=== PATIENT | female | born 1955 | race Caucasian/White ===

== ENCOUNTER → 2020-11-11 | Outpatient (CLI) | payer MEDICARE, MEDICAID ==
[~2020-11-11] MED LIST: ALBU0.63 NEB; APIX5TAB PO; BUDE10.2 INH; DIGO250T3 PO; DILT120T4 PO; DILT240C55 PO; FERR325T18 PO; FLUT12AE INH; FURO-92 PO; HYDR-3150 PO; NITR0.4T28 SL; SPIR25TA PO; SULF-169 PO; UMEC62.5 INH
== END | disposition home or self-care (01) ==
LOC: CFH 11:02
PROVIDERS: ATTEND Internal Medicine Cardiovascular Disease
DX: I08.8 Other rheumatic multiple valve diseases (principal); I48.91 Unspecified atrial fibrillation; I50.30 Unspecified diastolic (congestive) heart failure; J43.9 Emphysema, unspecified; I11.0 Hypertensive heart disease with heart failure; E78.5 Hyperlipidemia, unspecified; Z79.01 Long term (current) use of anticoagulants; Z87.891 Personal history of nicotine dependence
CPT/HCPCS: 78452; 93017; 93306; A9502

== ENCOUNTER 2021-04-23 00:06 | Inpatient (IN) | payer MEDICARE, MEDICAID ==
[~2021-04-23] VITALS: Ht 175.3 cm; Wt 131.4 kg
[2021-04-23] MEDS ORDERED: FUROSEMIDE 40 MG/4 ML ONE (00:28)
[2021-04-23] MEDS ORDERED: FUROSEMIDE 40 MG/4 ML IV ONE (00:30)
[2021-04-23] MEDS ORDERED: SODIUM CHLORIDE FLUSH 10ML SYR IVF ONE (00:30)
--- NOTE | 2021-04-23 00:31 | NUR ---
AMAYA BERMAN NOTIFIED ABOUT LOW BP IN THE 70'S. AWAITING ORDERS AT THIS TIME
--- NOTE | 2021-04-23 00:48 | NUR ---
AMAYA BERMAN ORDERED LEVOPHED FOR HYPOTENSION. TO HOLD OFF ON LASIX IVP UNTIL BP IMPROVES PER AMAYA BERMAN INSTRUCTION
[2021-04-23] MEDS ORDERED: PROPOFOL 100 ML IV ONE ×3 (01:05→08:43)
[2021-04-23 01:07] LABS: ALBUMIN 2.7 g/dL (3.4-5.0); ANION GAP 9 mmol/L (5-15); CALCIUM 9.7 mg/dL (8.5-10.1); CHLORIDE 111 mmol/L (98-107)
[2021-04-23 01:10] LABS: INTERNATIONAL NORMALIZED RATIO 1.13 (0.93-1.1)
[2021-04-23 01:10] LABS: ALANINE AMINOTRANSFERASE 15 U/L (12-78); ALKALINE PHOSPHATASE 119 U/L (45-117); CREATININE 3.48 mg/dL (0.55-1.02); T4 (THYROXINE) 7.1 mcg/dL (4.8-13.9); TOTAL PROTEIN 6.3 g/dL (6.4-8.2); TROPONIN I < 0.015 ng/mL (0.000-0.045)
[2021-04-23 01:20] LABS: BASOPHILS % (AUTO) 0 % (0-1); EOSINOPHILS % (AUTO) 0 % (1-7); LYMPHOCYTES % (AUTO) 3 % (22-44); MEAN CORPUSCULAR HEMOGLOBIN 20.1 pg (27.0-34.8); MEAN PLATELET VOLUME 9.6 fL (7.4-10.4); MONOCYTES % (AUTO) 2 % (2-9); NEUTROPHILS % (AUTO) 95 % (42-75); PLATELET COUNT 292 x10^3/uL (130-400); RED BLOOD COUNT 5.88 x10^6/uL (3.82-5.3); RED CELL DISTRIBUTION WIDTH 20.8 % (9.6-15.2)
--- NOTE | 2021-04-23 01:20 | NUR ---
DR. CONDE NOTIFIED OF ALL CRITICAL LAB RESULTS
[2021-04-23] MEDS: NOREPINEPHRINE 8 MG in SODIUM CHLORIDE 0.9% 242 ML IV PRN ×7 (01:21→12:54)
--- NOTE | 2021-04-23 01:30 | NUR ---
PATIENT INTUBATED AT THIS TIME PER DR. CONDE
[2021-04-23] MEDS: PROPOFOL 100 ML IV PRN ×5 (01:45→21:13)
[2021-04-23 01:46] LABS: BILIRUBIN,TOTAL 1.3 mg/dL (0.2-1.0)
[2021-04-23 01:59] LABS: MEAN CORPUSCULAR HGB CONC 28.7 g/dL (32.4-35.8)
[2021-04-23] MEDS ORDERED: ROCURONIUM 10 MG/ML,10ML IVPush ONE (02:00)
[2021-04-23] MEDS ORDERED: AZITHROMYCIN 500 MG in SODIUM CHLORIDE 0.9% 250 ML IV ONE (02:00)
[2021-04-23] MEDS ORDERED: CEFTRIAXONE 1,000 MG in DEXTROSE 5% 50 ML IVPB ONE (02:00)
[2021-04-23] MEDS ORDERED: INSULIN REGULAR 100 UNITS/ML, 3ML VIAL IVPush ONE (02:00)
[2021-04-23] MEDS ORDERED: ETOMIDATE 40 MG/20 ML IVPush ONE (02:00)
[2021-04-23] MEDS ORDERED: DEXTROSE 50%, 50ML SYRINGE IVPush ONE (02:00)
[2021-04-23] MEDS ORDERED: CALCIUM CHLORIDE 10%, 10ML SYR IVPush ONE (02:00)
[2021-04-23] MEDS ORDERED: SODIUM CHLORIDE 0.9% 1,000 ML IV ONE (02:00)
[2021-04-23 02:02] LABS: ANISOCYTOSIS 2+; MICROCYTOSIS 2+; OVALOCYTES 1+
[2021-04-23 02:03] LABS: ECHINOCYTES 1+; HYPOCHROMIA 2+
[2021-04-23 02:04] LABS: <PLATELET ESTIMATE> ADEQUATE; <PLT MORPHOLOGY> NORMAL PLT MORPH
[2021-04-23] MEDS ORDERED: CALCIUM CHLORIDE 10%, 10ML SYR ONE (02:07)
[2021-04-23] MEDS ORDERED: DEXTROSE 50%, 50ML SYRINGE ONE (02:07)
[2021-04-23] MEDS ORDERED: INSULIN LISPRO SINGLE DOSE, ER SQ-INSULIN ONE (02:08)
--- NOTE | 2021-04-23 02:10 | NUR ---
AMAYA BERMAN INFORMED ABOUT LOW DIASTOLIC PRESSURE IN THE 20'S. AMAYA BERMAN SAID TO TITRATE UP ON THE LEVOPHED TO REACH MAP OF GREATER THAN 65
--- NOTE | 2021-04-23 02:19 | NUR ---
PATIENT HEART RHYTHM CHANGED TO VTAC WITH A PULSE. AMAYA BERMAN AT THE BEDSIDE AND SAID TO DO ANOTHER EKG
[2021-04-23] MEDS ORDERED: INSULIN SINGLE DOSE, ER ONE (02:21)
--- NOTE | 2021-04-23 03:00 | NUR ---
ALDRICH INSERTION SUPERVISED BY ANNA AND DEE ANDREW
--- NOTE | 2021-04-23 03:44 | NUR ---
Dr. Singh notified of critical digoxin and arterial blood has results
[2021-04-23] MEDS ORDERED: MIDAZOLAM 1 MG/ML, 2ML ONE (04:06)
--- NOTE | 2021-04-23 04:07 | NUR ---
BREAK RN: PT BECOMING AGGITATED AND MOVING HER HEAD AROUND AND BITTING DOWN ON INTUBATION TUBING, NOTIFIED, 4MG OF VERSED ORDERED AND ADMINISTERED BY THIS RN
[2021-04-23] MEDS ORDERED: ONDANSETRON 2MG/ML, 2ML IVPush PRN (04:30)
[2021-04-23] MEDS ORDERED: PHARMACY MAY ADJ FOR RENAL FX MC PRN (04:30)
[2021-04-23] MEDS ORDERED: ENOXAPARIN 60 MG/0.6 ML SQ SCH ×3 (04:30→05:30)
[2021-04-23] MEDS ORDERED: VANCOMYCIN PER PHARMACY MC PRN (04:30)
[2021-04-23] MEDS ORDERED: MIDAZOLAM 1 MG/ML, 5ML IVPush ONE (04:30)
[2021-04-23] MEDS ORDERED: ROCURONIUM 10MG/ML,5ML ONE (04:35)
[2021-04-23] MEDS ORDERED: ETOMIDATE 20 MG/10 ML ONE (04:35)
[2021-04-23] MEDS ORDERED: MIDAZOLAM 1 MG/ML, 5ML ONE (04:35)
[2021-04-23 04:58] LABS: HCT (SEDRATE) 43.2 % (34.6-47.8)
[2021-04-23 05:09] LABS: BASOPHILS % (AUTO) 1 % (0-1); EOSINOPHILS % (AUTO) 0 % (1-7); LYMPHOCYTES % (AUTO) 2 % (22-44); MEAN CORPUSCULAR HEMOGLOBIN 20.3 pg (27.0-34.8); MEAN PLATELET VOLUME 8.6 fL (7.4-10.4); MONOCYTES % (AUTO) 2 % (2-9); NEUTROPHILS % (AUTO) 95 % (42-75); PLATELET COUNT 414 x10^3/uL (130-400); RED BLOOD COUNT 6.14 x10^6/uL (3.82-5.3); RED CELL DISTRIBUTION WIDTH 20.7 % (9.6-15.2)
[2021-04-23] MEDS ORDERED: ENOXAPARIN 60 MG/0.6 ML ONE (05:17)
[2021-04-23] MEDS ORDERED: ENOXAPARIN 80 MG/0.8 ML ONE (05:17)
--- NOTE | 2021-04-23 05:20 | NUR ---
Al cruz in ED - 04/23/21 at 0715 by SALOMÓN AMAYA BERMAN MADE AWARE THAT PATIENT HAS LESS THAN 30ML/HR OF URINE BEING PRODUCED. NO NEW ORDERS AT THIS TIME
--- NOTE | 2021-04-23 05:20 | NUR ---
AMAYA BERMAN MADE AWARE THAT PATIENT HAS LESS THAN 30ML/HR OF URINE BEING PRODUCED. NO NEW ORDERS AT THIS TIME
[2021-04-23 05:25] LABS: TROPONIN I < 0.015 ng/mL (0.000-0.045)
[2021-04-23] MEDS ORDERED: ENOXAPARIN 80 MG/0.8 ML SQ SCH ×2 (05:30)
--- NOTE | 2021-04-23 05:44 | NUR ---
AMAYA BERMAN NOTIFIED ABOUT CRITICAL LOW ARTERIAL BLOOD HAS PH RESULTS. NO NEW ORDERS AT THIS TIME
[2021-04-23 05:59] LABS: MEAN CORPUSCULAR HGB CONC 29.3 g/dL (32.4-35.8)
[2021-04-23 06:00] LABS: ANISOCYTOSIS 2+; MICROCYTOSIS 2+
[2021-04-23 06:01] LABS: <PLATELET ESTIMATE> INCREASED; ECHINOCYTES 1+; HYPOCHROMIA 1+; OVALOCYTES 1+; POLYCHROMASIA 1+
[2021-04-23 06:02] LABS: <PLT MORPHOLOGY> NORMAL PLT MORPH
--- NOTE | 2021-04-23 06:50 | NUR ---
PATIENT MOVED FROM ED [facility] TO [facility] BED
--- NOTE | 2021-04-23 07:02 | NUR ---
RECEIVED REPORT FROM TOPHER GARRETT. PT RESTING CALMLY ON HOSPITAL BED WITH HOB ELEVATED, ETT 24 @ LIP, OGT TO LCWS WITH OUTPUT IN TUBE ONLY, FC DRAINING TO GRAVITY WITH 10ML UOP IN BAG. Addendum: 04/23/21 at 0830 by SALOMÓN RECEIVED REPORT FROM TOPHER GARRETT. PT POSITIONED FOR COMFORT & RESTING CALMLY ON HOSPITAL BED WITH HOB ELEVATED, ETT 24 @ LIP, OGT TO LCWS WITH OUTPUT IN TUBE ONLY, FC DRAINING TO GRAVITY WITH 10ML UOP IN BAG.
--- NOTE | 2021-04-23 08:03 | NUR ---
PT CONTINUES TO REST CALMLY ON HOSPITAL BED, ALL LINES PATENT, FAMILY CALLED & UPDATED ON PT STATUS & VISITING POLICY, US AT BS.
--- NOTE | 2021-04-23 08:03 | NUR ---
DAUGHTER: CATHIE BOLANOS [phone] SON: MILTON LUIS MIGUEL [phone]
--- NOTE | 2021-04-23 08:32 | NUR ---
PT REPOSITIONED FOR COMFORT & RESTING CALMLY WITH HOB ELEVATED. 30ML URINE COLLECTED/EMPTIED FROM ALDRICH FOR UA SAMPLE- SENT TO LAB.
[2021-04-23 08:34] LABS: MICROSCOPIC INDICATED
[2021-04-23 08:38] LABS: CHLORIDE,URINE RANDOM 14 mmol/L; POTASSIUM,URINE RANDOM 47 mmol/L; SODIUM,URINE RANDOM 21 mmol/L
--- NOTE | 2021-04-23 08:52 | NUR ---
REPORT GIVEN TO JOSHUA GARRETT
[2021-04-23] MEDS ORDERED: PHARMACOKINETIC CONSULTATION MC ONE (09:00)
[2021-04-23] MEDS ORDERED: HYDROXYCHLOROQUINE 200 MG TABLET PO SCH (09:00)
[2021-04-23] MEDS ORDERED: VANCOMYCIN 2,300 MG in SODIUM CHLORIDE 0.9% 500 ML IV ONE (09:00)
[2021-04-23] MEDS ORDERED: PHARMACOKINETIC MONITORING MC PRN (09:00)
[2021-04-23] MEDS ORDERED: CHOLECALCIFEROL 5,000u TAB PO SCH (09:00)
--- NOTE | 2021-04-23 09:04 | NUR ---
SBAR RPT REC'D FROM TAMI STERN AND ASSUMED PT CARE. CRITICAL CARE GTTS AND INVASSIVE LINES VERIFIED.
[2021-04-23] MEDS ORDERED: DEXAMETHASONE 4 MG/ML, 1ML ONE (09:38)
[2021-04-23] MEDS: DEXAMETHASONE 4 MG/ML, 1ML IVPush SCH (09:42)
[2021-04-23] MEDS ORDERED: ASCORBIC ACID 500 MG TABLET ONE (09:49)
[2021-04-23] MEDS ORDERED: ZINC SULFATE 220 MG CAPSULE ONE (09:49)
[2021-04-23] MEDS ORDERED: THIAMINE 100MG TABLET ONE (09:49)
[2021-04-23] MEDS ORDERED: CHOLECALCIFEROL 5,000u TAB ONE (09:49)
[2021-04-23] MEDS: THIAMINE 100MG TABLET PO SCH (10:00)
[2021-04-23] MEDS: ASCORBIC ACID 500 MG TABLET PO SCH ×2 (10:00→21:06)
[2021-04-23] MEDS: ZINC SULFATE 220 MG CAPSULE PO SCH (10:00)
--- NOTE | 2021-04-23 10:00 | NUR ---
OGT CHECKED WITH AIR BOLUS PRIOR TO PUMP AND STILL OPERATOR. WHEN MEDS GIVEN AND PRIOR TO CLAMPING TUBE I HEAR A FAINT GIRGLING SOUND FROM MOUTH. I CHECKED PRIOR RADIOLOGY STUDIES AND NO MENTION OF OGT TUBE NOTED. DISCUSSED WITH STEVEN CHERY FOR CHEST XRAY AND KUB ORDERED.
[2021-04-23 10:22] LABS: D-DIMER 2.25 ug/mlFEU (0.00-0.52)
[2021-04-23 10:23] LABS: TROPONIN I 0.023 ng/mL (0.000-0.045)
--- NOTE | 2021-04-23 11:15 | NUR ---
ABD XRAY COMPLETED AND REVIEWED BY DR DUPONT, CONFIRMED OGT IN THE STOMACH. OGT TO [place].
--- NOTE | 2021-04-23 11:27 | NUR ---
DR PACK AT BEDSIDE.
[2021-04-23 11:57] VITALS: BP 104/30
[2021-04-23] MEDS ORDERED: NOREPINEPHRINE 1 MG/ML, 4ML ONE ×2 (12:49→15:03)
[2021-04-23] MEDS ORDERED: FENTANYL PF 100 MCG/2ML IVPush PRN (13:00)
[2021-04-23] MEDS ORDERED: PHARMACY MAY ADJ FOR RENAL FX MC SCH (13:00)
[2021-04-23] MEDS ORDERED: LIDOCAINE-MPF 1%, 2ML ENDO PRN (13:00)
[2021-04-23] MEDS: ERGOCALCIFEROL 50,000 UNIT CAPSULE PO SCH (14:11)
[2021-04-23] MEDS: HEPARIN 5,000 UNITS/ML, 1ML SQ SCH ×2 (14:12→21:06)
[2021-04-23] MEDS: NOREPINEPHRINE 32 MG in SODIUM CHLORIDE 0.9% 218 ML IV PRN (16:30)
[2021-04-23] MEDS: VASOPRESSIN 20 UNIT in SODIUM CHLORIDE 0.9% 99 ML IV PRN (21:07)
[2021-04-24] MEDS: PROPOFOL 100 ML IV PRN ×6 (00:05→20:00)
[2021-04-24] MEDS: CEFTRIAXONE 2 GM in DEXTROSE 5% 50 ML IVPB SCH (01:19)
[2021-04-24] MEDS: AZITHROMYCIN 500 MG in SODIUM CHLORIDE 0.9% 250 ML IV SCH (02:01)
[2021-04-24] MEDS: NOREPINEPHRINE 32 MG in SODIUM CHLORIDE 0.9% 218 ML IV PRN ×2 (02:01→11:45)
[2021-04-24] MEDS: VASOPRESSIN 20 UNIT in SODIUM CHLORIDE 0.9% 99 ML IV PRN ×2 (02:34→11:45)
[2021-04-24] MEDS ORDERED: VANCOMYCIN PER PHARMACY MC PRN (03:00)
[2021-04-24 04:48] LABS: HCT (SEDRATE) 41.2 % (34.6-47.8); MEAN CORPUSCULAR HEMOGLOBIN 19.9 pg (27.0-34.8); MEAN PLATELET VOLUME 8.5 fL (7.4-10.4); PLATELET COUNT 437 x10^3/uL (130-400); RED BLOOD COUNT 6.06 x10^6/uL (3.82-5.3); RED CELL DISTRIBUTION WIDTH 21.4 % (9.6-15.2)
[2021-04-24 04:57] LABS: ALBUMIN 2.5 g/dL (3.4-5.0); ANION GAP 8 mmol/L (5-15); CALCIUM 8.6 mg/dL (8.5-10.1); CHLORIDE 110 mmol/L (98-107)
[2021-04-24 05:06] LABS: ALANINE AMINOTRANSFERASE 13 U/L (12-78); ALKALINE PHOSPHATASE 116 U/L (45-117); BILIRUBIN,TOTAL 0.9 mg/dL (0.2-1.0); CREATININE 3.09 mg/dL (0.55-1.02); TOTAL PROTEIN 6.4 g/dL (6.4-8.2)
[2021-04-24 05:22] LABS: MEAN CORPUSCULAR HGB CONC 29.2 g/dL (32.4-35.8)
[2021-04-24] MEDS ORDERED: CALCIUM CHLORIDE 10%, 10ML SYR IVPush ONE (05:30)
[2021-04-24] MEDS ORDERED: INSULIN REGULAR 100 UNITS/ML, 3ML VIAL IVPush ONE (05:30)
[2021-04-24] MEDS ORDERED: SODIUM BICARB 8.4%, 50ML SYRINGE IVPush ONE ×2 (05:30→16:00)
[2021-04-24] MEDS ORDERED: DEXTROSE 50%, 50ML SYRINGE IVPush ONE (05:30)
[2021-04-24 05:41] LABS: BAND#(MANUAL) 0.21 x10^3/uL; BANDS%(MANUAL) 1 % (0-7); LYMPH#(MANUAL) 0.63 x10^3/uL (1-3.4); LYMPHS% (MANUAL) 3 % (22-44); MONOS% (MANUAL) 11 % (2-9); SEG#(MANUAL) 17.77 x10^3/uL (1.8-6.8); SEGS% (MANUAL) 85 % (42-75)
[2021-04-24 05:42] LABS: <PLATELET ESTIMATE> INCREASED; <PLT MORPHOLOGY> NORMAL PLT MORPH; ANISOCYTOSIS 2+; HYPOCHROMIA 1+; MICROCYTOSIS 2+; OVALOCYTES 1+; POLYCHROMASIA 1+
[2021-04-24] MEDS: HEPARIN 5,000 UNITS/ML, 1ML SQ SCH ×3 (06:00→21:20)
[2021-04-24] MEDS: FERROUS SULFATE 325 MG TABLET PO SCH ×2 (08:11→17:57)
[2021-04-24] MEDS: SODIUM ZIRCONIUM CYCLOSILICATE 10 GM PO SCH (09:02)
[2021-04-24] MEDS: PANTOPRAZOLE 40 MG IV IV SCH (09:02)
[2021-04-24] MEDS: DEXAMETHASONE 4 MG/ML, 1ML IVPush SCH (09:02)
[2021-04-24] MEDS: SODIUM BICARBONATE 650 MG TABLET PO SCH ×2 (09:03→21:00)
[2021-04-24] MEDS: ZINC SULFATE 220 MG CAPSULE PO SCH (09:03)
[2021-04-24] MEDS: THIAMINE 100MG TABLET PO SCH (09:04)
[2021-04-24] MEDS: ASCORBIC ACID 500 MG TABLET PO SCH ×2 (09:04→21:20)
[2021-04-24] MEDS ORDERED: REMDESIVIR 200 MG in SODIUM CHLORIDE 0.9% 250 ML IVPB ONE (10:00)
[2021-04-24] MEDS ORDERED: DOPAMINE/D5W PMX 250 ML ONE (14:25)
[2021-04-24] MEDS ORDERED: ATROPINE SYRINGE 0.1 MG/ML, 10ML IVPush PRN (14:30)
[2021-04-24] MEDS: DOPAMINE/D5W PMX 250 ML IV PRN ×2 (14:35→20:00)
[2021-04-24 14:45] LABS: ANION GAP 7 mmol/L (5-15); CALCIUM 8.5 mg/dL (8.5-10.1); CHLORIDE 113 mmol/L (98-107); CREATININE 2.87 mg/dL (0.55-1.02)
[2021-04-24] MEDS ORDERED: SODIUM BICARB 8.4%, 50ML SYRINGE ONE (15:37)
[2021-04-24] MEDS: SODIUM BICARBONATE 8.4% 150 MEQ in DEXTROSE 5% 1,000 ML IV SCH (16:33)
[2021-04-24] MEDS ORDERED: ATROPINE SYRINGE 0.1 MG/ML, 10ML ONE (19:40)
[2021-04-24] MEDS: MIDAZOLAM HCL 50 MG in SODIUM CHLORIDE 0.9% 40 ML IV PRN (21:00)
[2021-04-25] MEDS: SODIUM BICARBONATE 8.4% 150 MEQ in DEXTROSE 5% 1,000 ML IV SCH (01:48)
[2021-04-25] MEDS: SODIUM ZIRCONIUM CYCLOSILICATE 10 GM PO SCH (01:48)
[2021-04-25] MEDS: DOPAMINE/D5W PMX 250 ML IV PRN (01:49)
[2021-04-25] MEDS: PROPOFOL 100 ML IV PRN ×2 (01:50→08:57)
[2021-04-25] MEDS: CEFTRIAXONE 2 GM in DEXTROSE 5% 50 ML IVPB SCH (02:45)
[2021-04-25] MEDS: AZITHROMYCIN 500 MG in SODIUM CHLORIDE 0.9% 250 ML IV SCH (03:00)
[2021-04-25 03:25] LABS: MEAN CORPUSCULAR HEMOGLOBIN 19.9 pg (27.0-34.8); MEAN PLATELET VOLUME 8.6 fL (7.4-10.4); PLATELET COUNT 260 x10^3/uL (130-400); RED BLOOD COUNT 5.26 x10^6/uL (3.82-5.3); RED CELL DISTRIBUTION WIDTH 20.9 % (9.6-15.2)
[2021-04-25 03:29] LABS: MEAN CORPUSCULAR HGB CONC 29.5 g/dL (32.4-35.8)
[2021-04-25 03:30] LABS: HCT (SEDRATE) 35.5 % (34.6-47.8)
[2021-04-25 03:32] LABS: ALANINE AMINOTRANSFERASE 11 U/L (12-78); ALBUMIN 2.1 g/dL (3.4-5.0); ANION GAP 7 mmol/L (5-15); CALCIUM 8.1 mg/dL (8.5-10.1); CHLORIDE 110 mmol/L (98-107); CREATININE 2.43 mg/dL (0.55-1.02)
[2021-04-25 03:39] LABS: ALKALINE PHOSPHATASE 90 U/L (45-117); BILIRUBIN,TOTAL 0.6 mg/dL (0.2-1.0); TOTAL PROTEIN 5.4 g/dL (6.4-8.2); VANCOMYCIN,RANDOM 12.6 mcg/mL
[2021-04-25 04:09] LABS: D-DIMER 1.74 ug/mlFEU (0.00-0.52)
[2021-04-25 04:24] LABS: LYMPH#(MANUAL) 0.71 x10^3/uL (1-3.4); LYMPHS% (MANUAL) 8 % (22-44); MONOS#(MANUAL) 0.45 x10^3/uL (0.3-2.7); MONOS% (MANUAL) 5 % (2-9); REACTIVE LYMPHS # (MANUAL) 0.09 x10^3/uL (0-0); REACTIVE LYMPHS % (MANUAL) 1 % (0-0); SEG#(MANUAL) 7.65 x10^3/uL (1.8-6.8); SEGS% (MANUAL) 86 % (42-75)
[2021-04-25 04:25] LABS: ANISOCYTOSIS 2+; HYPOCHROMIA 1+; MICROCYTOSIS 2+; OVALOCYTES 1+; POLYCHROMASIA 1+
[2021-04-25 04:26] LABS: <PLATELET ESTIMATE> ADEQUATE; <PLT MORPHOLOGY> NORMAL PLT MORPH
[2021-04-25] MEDS: HEPARIN 5,000 UNITS/ML, 1ML SQ SCH (05:30)
[2021-04-25] MEDS ORDERED: FUROSEMIDE 40 MG/4 ML IV ONE (08:30)
[2021-04-25] MEDS: ZINC SULFATE 220 MG CAPSULE PO SCH (08:56)
[2021-04-25] MEDS: FERROUS SULFATE 325 MG TABLET PO SCH ×2 (08:56→17:03)
[2021-04-25] MEDS: ASCORBIC ACID 500 MG TABLET PO SCH ×2 (08:56→20:32)
[2021-04-25] MEDS: THIAMINE 100MG TABLET PO SCH (08:56)
[2021-04-25] MEDS: PANTOPRAZOLE 40 MG IV IV SCH (08:57)
[2021-04-25] MEDS: DEXAMETHASONE 4 MG/ML, 1ML IVPush SCH (08:57)
[2021-04-25] MEDS: SODIUM BICARBONATE 650 MG TABLET PO SCH ×2 (09:00→20:32)
--- NOTE | 2021-04-25 09:42 | NUR ---
TF per RD recs: vital HP w/ end goal rate of 60 mL/hr (ON propofol); 70 mL/hr (OFF propofol) w/ addition of 2-packets of beneprotein QD (protein modular), to provide additional 14g protein to meet increased protein needs. Addendum: 04/25/21 at [address] Amended: Links added.
[2021-04-25] MEDS: MIDAZOLAM HCL 50 MG in SODIUM CHLORIDE 0.9% 40 ML IV PRN ×2 (09:57→23:00)
[2021-04-25] MEDS ORDERED: VANCOMYCIN 2,400 MG in SODIUM CHLORIDE 0.9% 500 ML IV ONE (10:00)
[2021-04-25] MEDS: REMDESIVIR 100 MG in SODIUM CHLORIDE 0.9% 250 ML IVPB SCH (11:29)
[2021-04-25] MEDS: APIXABAN 5 MG TABLET PO SCH (20:32)
[2021-04-26] MEDS: CEFTRIAXONE 2 GM in DEXTROSE 5% 50 ML IVPB SCH (02:00)
[2021-04-26] MEDS: AZITHROMYCIN 500 MG in SODIUM CHLORIDE 0.9% 250 ML IV SCH (03:00)
[2021-04-26 04:18] LABS: BASOPHILS % (AUTO) 0 % (0-1); EOSINOPHILS % (AUTO) 0 % (1-7); LYMPHOCYTES % (AUTO) 6 % (22-44); MEAN CORPUSCULAR HEMOGLOBIN 19.9 pg (27.0-34.8); MEAN CORPUSCULAR HGB CONC 29.8 g/dL (32.4-35.8); MEAN PLATELET VOLUME 8.6 fL (7.4-10.4); MONOCYTES % (AUTO) 8 % (2-9); NEUTROPHILS % (AUTO) 86 % (42-75); PLATELET COUNT 329 x10^3/uL (130-400); RED BLOOD COUNT 5.48 x10^6/uL (3.82-5.3)
[2021-04-26 04:24] LABS: ALANINE AMINOTRANSFERASE 12 U/L (12-78); ALBUMIN 2.4 g/dL (3.4-5.0); ANION GAP 5 mmol/L (5-15); CALCIUM 8.3 mg/dL (8.5-10.1); CHLORIDE 113 mmol/L (98-107); CREATININE 1.84 mg/dL (0.55-1.02)
[2021-04-26 04:26] LABS: ALKALINE PHOSPHATASE 93 U/L (45-117); BILIRUBIN,TOTAL 0.6 mg/dL (0.2-1.0); TRIGLYCERIDES 89 mg/dL (50-200)
[2021-04-26] MEDS ORDERED: FUROSEMIDE 20 MG/2 ML IV ONE (06:30)
[2021-04-26] MEDS: ZINC SULFATE 220 MG CAPSULE PO SCH (08:07)
[2021-04-26] MEDS: FERROUS SULFATE 325 MG TABLET PO SCH ×2 (08:07→17:51)
[2021-04-26] MEDS: APIXABAN 5 MG TABLET PO SCH ×2 (08:08→20:16)
[2021-04-26] MEDS: SODIUM BICARBONATE 650 MG TABLET PO SCH ×2 (08:08→20:16)
[2021-04-26] MEDS: THIAMINE 100MG TABLET PO SCH (08:08)
[2021-04-26] MEDS: ASCORBIC ACID 500 MG TABLET PO SCH ×2 (08:08→20:16)
[2021-04-26] MEDS: DEXAMETHASONE 4 MG/ML, 1ML IVPush SCH (08:08)
[2021-04-26] MEDS: PANTOPRAZOLE 40 MG IV IV SCH (08:08)
[2021-04-26] MEDS: REMDESIVIR 100 MG in SODIUM CHLORIDE 0.9% 250 ML IVPB SCH (11:43)
[2021-04-26] MEDS: MIDAZOLAM HCL 50 MG in SODIUM CHLORIDE 0.9% 40 ML IV PRN (14:16)
[2021-04-26] MEDS: MIDAZOLAM HCL 100 MG in SODIUM CHLORIDE 0.9% 80 ML IV PRN (23:45)
[2021-04-27] MEDS: CEFTRIAXONE 2 GM in DEXTROSE 5% 50 ML IVPB SCH (02:00)
[2021-04-27] MEDS: PROPOFOL 100 ML IV PRN ×3 (03:00→16:27)
[2021-04-27] MEDS: AZITHROMYCIN 500 MG in SODIUM CHLORIDE 0.9% 250 ML IV SCH (03:41)
[2021-04-27 04:29] LABS: BASOPHILS % (AUTO) 0 % (0-1); EOSINOPHILS % (AUTO) 0 % (1-7); LYMPHOCYTES % (AUTO) 7 % (22-44); MEAN CORPUSCULAR HEMOGLOBIN 19.6 pg (27.0-34.8); MEAN PLATELET VOLUME 8.6 fL (7.4-10.4); MONOCYTES % (AUTO) 13 % (2-9); NEUTROPHILS % (AUTO) 80 % (42-75); PLATELET COUNT 296 x10^3/uL (130-400); RED CELL DISTRIBUTION WIDTH 20.7 % (9.6-15.2)
[2021-04-27 04:36] LABS: ALANINE AMINOTRANSFERASE 14 U/L (12-78); ALBUMIN 2.6 g/dL (3.4-5.0); CALCIUM 8.5 mg/dL (8.5-10.1); CREATININE 1.38 mg/dL (0.55-1.02)
[2021-04-27 04:38] LABS: ALKALINE PHOSPHATASE 82 U/L (45-117); BILIRUBIN,TOTAL 0.6 mg/dL (0.2-1.0); TOTAL PROTEIN 5.8 g/dL (6.4-8.2)
[2021-04-27 04:45] LABS: ANION GAP 3 mmol/L (5-15); CHLORIDE 114 mmol/L (98-107)
[2021-04-27 04:49] LABS: MEAN CORPUSCULAR HGB CONC 29.3 g/dL (32.4-35.8)
[2021-04-27 05:10] LABS: <PLATELET ESTIMATE> ADEQUATE; <PLT MORPHOLOGY> NORMAL PLT MORPH; ANISOCYTOSIS 2+; HYPOCHROMIA 1+; MICROCYTOSIS 2+; OVALOCYTES 1+; POLYCHROMASIA 1+; TARGET CELLS 1+; TEAR DROPS 1+
[2021-04-27] MEDS ORDERED: FUROSEMIDE 40 MG/4 ML IV ONE (09:00)
[2021-04-27] MEDS: THIAMINE 100MG TABLET PO SCH (09:17)
[2021-04-27] MEDS: FERROUS SULFATE 325 MG TABLET PO SCH ×2 (09:17→16:26)
[2021-04-27] MEDS: DEXAMETHASONE 4 MG/ML, 1ML IVPush SCH (09:17)
[2021-04-27] MEDS: ZINC SULFATE 220 MG CAPSULE PO SCH (09:17)
[2021-04-27] MEDS: APIXABAN 5 MG TABLET PO SCH ×2 (09:17→20:25)
[2021-04-27] MEDS: ASCORBIC ACID 500 MG TABLET PO SCH ×2 (09:18→20:25)
[2021-04-27] MEDS: PANTOPRAZOLE 40 MG IV IV SCH (09:18)
[2021-04-27] MEDS: REMDESIVIR 100 MG in SODIUM CHLORIDE 0.9% 250 ML IVPB SCH (12:18)
[2021-04-27] MEDS: MIDAZOLAM HCL 100 MG in SODIUM CHLORIDE 0.9% 80 ML IV PRN (18:38)
[2021-04-28] MEDS: PROPOFOL 100 ML IV PRN ×5 (00:02→20:13)
[2021-04-28] MEDS: CEFTRIAXONE 2 GM in DEXTROSE 5% 50 ML IVPB SCH (02:19)
[2021-04-28] MEDS: AZITHROMYCIN 500 MG in SODIUM CHLORIDE 0.9% 250 ML IV SCH (03:13)
[2021-04-28 04:16] LABS: BASOPHILS % (AUTO) 0 % (0-1); EOSINOPHILS % (AUTO) 0 % (1-7); LYMPHOCYTES % (AUTO) 7 % (22-44); MEAN CORPUSCULAR HEMOGLOBIN 19.9 pg (27.0-34.8); MEAN PLATELET VOLUME 8.6 fL (7.4-10.4); MONOCYTES % (AUTO) 9 % (2-9); NEUTROPHILS % (AUTO) 84 % (42-75); PLATELET COUNT 284 x10^3/uL (130-400); RED BLOOD COUNT 5.74 x10^6/uL (3.82-5.3); RED CELL DISTRIBUTION WIDTH 21.5 % (9.6-15.2)
[2021-04-28 04:26] LABS: ALBUMIN 2.4 g/dL (3.4-5.0); ANION GAP 4 mmol/L (5-15); CALCIUM 8.9 mg/dL (8.5-10.1); CHLORIDE 115 mmol/L (98-107)
[2021-04-28 04:31] LABS: ALANINE AMINOTRANSFERASE 14 U/L (12-78); ALKALINE PHOSPHATASE 83 U/L (45-117); BILIRUBIN,TOTAL 0.6 mg/dL (0.2-1.0); TOTAL PROTEIN 5.7 g/dL (6.4-8.2)
[2021-04-28 05:47] LABS: ANISOCYTOSIS 2+; MEAN CORPUSCULAR HGB CONC 29.4 g/dL (32.4-35.8); MICROCYTOSIS 2+
[2021-04-28 05:48] LABS: <PLATELET ESTIMATE> ADEQUATE; <PLT MORPHOLOGY> NORMAL PLT MORPH; HYPOCHROMIA 1+; OVALOCYTES 1+; POLYCHROMASIA 1+; TARGET CELLS 1+; TEAR DROPS 1+
[2021-04-28] MEDS: ZINC SULFATE 220 MG CAPSULE PO SCH (08:28)
[2021-04-28] MEDS: PANTOPRAZOLE 40 MG IV IV SCH (08:28)
[2021-04-28] MEDS: FERROUS SULFATE 325 MG TABLET PO SCH ×2 (08:28→18:09)
[2021-04-28] MEDS: APIXABAN 5 MG TABLET PO SCH ×2 (08:28→20:58)
[2021-04-28] MEDS: DEXAMETHASONE 4 MG/ML, 1ML IVPush SCH (08:29)
[2021-04-28] MEDS: ASCORBIC ACID 500 MG TABLET PO SCH ×2 (08:29→20:58)
[2021-04-28] MEDS: FUROSEMIDE 40 MG/4 ML IV SCH ×2 (09:25→20:58)
[2021-04-28] MEDS: MIDAZOLAM HCL 100 MG in SODIUM CHLORIDE 0.9% 80 ML IV PRN (09:25)
[2021-04-28] MEDS: REMDESIVIR 100 MG in SODIUM CHLORIDE 0.9% 250 ML IVPB SCH (10:41)
[2021-04-28] MEDS: THIAMINE 100MG TABLET PO SCH (10:41)
[2021-04-29] MEDS: PROPOFOL 100 ML IV PRN ×5 (00:23→17:26)
[2021-04-29] MEDS: CEFTRIAXONE 2 GM in DEXTROSE 5% 50 ML IVPB SCH (03:14)
[2021-04-29] MEDS: AZITHROMYCIN 500 MG in SODIUM CHLORIDE 0.9% 250 ML IV SCH (03:47)
[2021-04-29 04:10] LABS: BASOPHILS % (AUTO) 0 % (0-1); EOSINOPHILS % (AUTO) 0 % (1-7); LYMPHOCYTES % (AUTO) 9 % (22-44); MEAN CORPUSCULAR HEMOGLOBIN 19.9 pg (27.0-34.8); MEAN PLATELET VOLUME 8.4 fL (7.4-10.4); MONOCYTES % (AUTO) 8 % (2-9); NEUTROPHILS % (AUTO) 83 % (42-75); PLATELET COUNT 214 x10^3/uL (130-400); RED BLOOD COUNT 5.66 x10^6/uL (3.82-5.3); RED CELL DISTRIBUTION WIDTH 21.2 % (9.6-15.2)
[2021-04-29 04:12] LABS: MEAN CORPUSCULAR HGB CONC 29.5 g/dL (32.4-35.8)
[2021-04-29 04:49] LABS: ANISOCYTOSIS 2+; MICROCYTOSIS 2+
[2021-04-29 04:50] LABS: HYPOCHROMIA 1+; OVALOCYTES 1+; POLYCHROMASIA 1+
[2021-04-29 04:51] LABS: <PLATELET ESTIMATE> ADEQUATE; <PLT MORPHOLOGY> NORMAL PLT MORPH; TARGET CELLS 1+; TEAR DROPS 1+
[2021-04-29 06:16] LABS: CHLORIDE 114 mmol/L (98-107)
[2021-04-29 06:25] LABS: ALANINE AMINOTRANSFERASE 13 U/L (12-78); ALBUMIN 2.3 g/dL (3.4-5.0); ALKALINE PHOSPHATASE 78 U/L (45-117); ANION GAP 6 mmol/L (5-15); BILIRUBIN,TOTAL 0.6 mg/dL (0.2-1.0); CALCIUM 8.8 mg/dL (8.5-10.1); CREATININE 0.98 mg/dL (0.55-1.02); TOTAL PROTEIN 5.4 g/dL (6.4-8.2)
[2021-04-29] MEDS: PANTOPRAZOLE 40 MG IV IV SCH ×2 (11:12→21:11)
[2021-04-29] MEDS: DEXAMETHASONE 4 MG/ML, 1ML IVPush SCH (11:12)
[2021-04-29] MEDS: FUROSEMIDE 40 MG/4 ML IV SCH ×2 (11:12→21:11)
[2021-04-29] MEDS: THIAMINE 100MG TABLET PO SCH (11:13)
[2021-04-29] MEDS: FERROUS SULFATE 325 MG TABLET PO SCH ×2 (11:13→17:25)
[2021-04-29] MEDS: ZINC SULFATE 220 MG CAPSULE PO SCH (11:13)
[2021-04-29] MEDS: ASCORBIC ACID 500 MG TABLET PO SCH ×2 (11:13→21:11)
[2021-04-29] MEDS: MIDAZOLAM HCL 100 MG in SODIUM CHLORIDE 0.9% 80 ML IV PRN (11:19)
[2021-04-30] MEDS: PROPOFOL 100 ML IV PRN ×3 (00:32→13:09)
[2021-04-30] MEDS: CEFTRIAXONE 2 GM in DEXTROSE 5% 50 ML IVPB SCH (01:53)
[2021-04-30] MEDS: AZITHROMYCIN 500 MG in SODIUM CHLORIDE 0.9% 250 ML IV SCH (03:35)
[2021-04-30] MEDS: NOREPINEPHRINE 32 MG in SODIUM CHLORIDE 0.9% 218 ML IV PRN ×2 (03:39→04:21)
[2021-04-30 06:14] LABS: CHLORIDE 112 mmol/L (98-107)
[2021-04-30 06:15] LABS: BASOPHILS % (AUTO) 0 % (0-1); EOSINOPHILS % (AUTO) 0 % (1-7); LYMPHOCYTES % (AUTO) 14 % (22-44); MEAN CORPUSCULAR HEMOGLOBIN 20.3 pg (27.0-34.8); MEAN PLATELET VOLUME 9.3 fL (7.4-10.4); MONOCYTES % (AUTO) 9 % (2-9); NEUTROPHILS % (AUTO) 77 % (42-75); PLATELET COUNT 328 x10^3/uL (130-400); RED BLOOD COUNT 6.52 x10^6/uL (3.82-5.3); RED CELL DISTRIBUTION WIDTH 21.9 % (9.6-15.2)
[2021-04-30 06:27] LABS: ANION GAP 10 mmol/L (5-15); CALCIUM 9.3 mg/dL (8.5-10.1); CREATININE 1.29 mg/dL (0.55-1.02)
[2021-04-30 07:09] LABS: MEAN CORPUSCULAR HGB CONC 29.6 g/dL (32.4-35.8)
[2021-04-30] MEDS ORDERED: ASCORBIC ACID 250 MG TAB ONE (09:26)
[2021-04-30] MEDS: ZINC SULFATE 220 MG CAPSULE PO SCH (09:30)
[2021-04-30] MEDS: THIAMINE 100MG TABLET PO SCH (09:31)
[2021-04-30] MEDS: PANTOPRAZOLE 40 MG IV IV SCH (09:31)
[2021-04-30] MEDS: ASCORBIC ACID 500 MG TABLET PO SCH (09:31)
[2021-04-30] MEDS: DEXAMETHASONE 4 MG/ML, 1ML IVPush SCH (09:31)
[2021-04-30] MEDS: FUROSEMIDE 40 MG/4 ML IV SCH (09:32)
[2021-04-30] MEDS: FERROUS SULFATE 325 MG TABLET PO SCH (09:32)
[2021-04-30] MEDS: MIDAZOLAM HCL 100 MG in SODIUM CHLORIDE 0.9% 80 ML IV PRN (09:35)
[2021-04-30] MEDS ORDERED: LORazepam 2 MG/ML, 1ML IV ONE (13:00)
[2021-04-30] MEDS ORDERED: LORazepam 2 MG/ML, 1ML IVPush PRN (13:00)
[2021-04-30] MEDS: ERGOCALCIFEROL 50,000 UNIT CAPSULE PO SCH (13:00)
[2021-04-30] MEDS ORDERED: MORPHINE SULFATE 4 MG/ML, 1ML IV ONE (13:00)
[2021-04-30] MEDS ORDERED: MORPHINE SULFATE 4 MG/ML, 1ML IVPush PRN (13:00)
== END 2021-04-30 17:09 | DRG 870 ==
LOC: ED 00:20 → EDIP 03:10 → CCU 11:37
PROVIDERS: ADMIT Internal Medicine; ATTEND Hospitalist
PROC: 5A1955Z Respiratory Ventilation, Greater than 96 Consecutive Hours (ICD-10-PCS; principal; 2021-04-23)
PROC: 0BH17EZ Insertion of Endotracheal Airway into Trachea, Via Natural or Artificial Opening (ICD-10-PCS; 2021-04-23)
PROC: 0T9B70Z Drainage of Bladder with Drainage Device, Via Natural or Artificial Opening (ICD-10-PCS; 2021-04-23)
PROC: 02HV33Z Insertion of Infusion Device into Superior Vena Cava, Percutaneous Approach (ICD-10-PCS; 2021-04-23)
PROC: B548ZZA Ultrasonography of Superior Vena Cava, Guidance (ICD-10-PCS; 2021-04-23)
PROC: XW033E5 Introduction of Remdesivir Anti-infective into Peripheral Vein, Percutaneous Approach, New Technology Group 5 (ICD-10-PCS; 2021-04-25)
DX: A41.89 Other specified sepsis (principal); U07.1 COVID-19; J12.82 Pneumonia due to coronavirus disease 2019; J96.01 Acute respiratory failure with hypoxia; J96.02 Acute respiratory failure with hypercapnia; N17.0 Acute kidney failure with tubular necrosis; I50.21 Acute systolic (congestive) heart failure; J15.8 Pneumonia due to other specified bacteria; I63.9 Cerebral infarction, unspecified; Z68.41 Body mass index [BMI] 40.0-44.9, adult; E87.2 Acidosis; I13.0 Hypertensive heart and chronic kidney disease with heart failure and stage 1 through stage 4 chronic kidney disease, or unspecified chronic kidney disease; I42.9 Cardiomyopathy, unspecified; I48.20 Chronic atrial fibrillation, unspecified; I48.92 Unspecified atrial flutter; J44.0 Chronic obstructive pulmonary disease with (acute) lower respiratory infection; K43.6 Other and unspecified ventral hernia with obstruction, without gangrene; K92.0 Hematemesis; N25.81 Secondary hyperparathyroidism of renal origin; R18.8 Other ascites; Z99.11 Dependence on respirator [ventilator] status; Z51.5 Encounter for palliative care; Z66 Do not resuscitate; D50.9 Iron deficiency anemia, unspecified; E55.9 Vitamin D deficiency, unspecified; E66.01 Morbid (severe) obesity due to excess calories; E87.5 Hyperkalemia; F10.10 Alcohol abuse, uncomplicated; I07.1 Rheumatic tricuspid insufficiency; I27.29 Other secondary pulmonary hypertension; I27.81 Cor pulmonale (chronic); I48.0 Paroxysmal atrial fibrillation; K44.9 Diaphragmatic hernia without obstruction or gangrene; K74.60 Unspecified cirrhosis of liver; N18.9 Chronic kidney disease, unspecified; R29.810 Facial weakness; Z72.0 Tobacco use; Z79.01 Long term (current) use of anticoagulants; Z90.710 Acquired absence of both cervix and uterus; Z98.84 Bariatric surgery status; Z99.81 Dependence on supplemental oxygen; Z88.1 Allergy status to other antibiotic agents; Z88.0 Allergy status to penicillin
CPT/HCPCS: 31500; 36415; 36556; 36600; 70450; 71045; 71250; 74018; 74176; 76770; 80048; 80053; 80074; 80162; 80202; 81001; 82306; 82436; 82570; 82728; 82803; 82962; 83540; 83550; 83605; 83615; 83735; 83880; 83970; 84100; 84133; 84145; 84300; 84436; 84443; 84478; 84484; 84550; 85014; 85018; 85025; 85379; 85384; 85610; 85651; 85730; 86140; 87040; 87070; 87077; 87081; 87086; 87106; 87205; 87806; 93005; 93308; 94002; 94003; 96374; 99291; G0378; J0456; J0461; J0696; J1100; J1265; J1644; J1650; J1815; J1940; J2250; J2704; J3370; J7070; U0005; C9113; G0475; J2060; J2270; J7030; J7040; J7050; U0003